=== PATIENT | female | born 1985 | race Caucasian/White ===

== ENCOUNTER 2021-05-18 09:58 | Outpatient (REF) | payer MEDICAID, SELFPAY | END 2021-05-18 09:59 | disposition home or self-care (01) | LOC: LBN 09:58 | PROVIDERS: PCP Student in an Organized Health Care Education/Training Program; Visit Provider Student in an Organized Health Care Education/Training Program | DX: N90.89 Other specified noninflammatory disorders of vulva and perineum (principal) | CPT/HCPCS: 87070 ==

== ENCOUNTER 2023-04-04 21:03 | Outpatient (REF) | payer BC, SELFPAY ==
[2023-04-07 11:52] LABS: Syphilis Serology (RPR) Negative (Negative)
== END 2023-04-04 21:04 | disposition home or self-care (01) ==
LOC: LBN 21:03
PROVIDERS: PCP Student in an Organized Health Care Education/Training Program; Visit Provider Nurse Practitioner Family
DX: Z00.00 Encounter for general adult medical examination without abnormal findings (principal); Z11.3 Encounter for screening for infections with a predominantly sexual mode of transmission; Z01.84 Encounter for antibody response examination; Z02.89 Encounter for other administrative examinations
CPT/HCPCS: 86592; 86787